=== PATIENT | male | born 1985 | race African-American/Black ===

== ENCOUNTER 2017-12-02 03:10 | Emergency (ER) | payer SELFPAY ==
[~2017-12-02] VITALS: Ht 167.6 cm; Wt 72.6 kg
[2017-12-02 03:18] VITALS: BP 130/104
[2017-12-02] MEDS ORDERED: Morphine Sulfate 4mg/ml Inj IVP ONE ×2 (03:30→04:45)
[2017-12-02] MEDS ORDERED: Ketorolac 30mg Inj IV ONE (03:30)
[2017-12-02 03:41] LABS: APPEARANCE,URINE CLEAR; BASOPHILS % (AUTO) 0.3 % (0.0-2.0); BILIRUBIN, URINE NEGATIVE (NEGATIVE); EOSINOPHILS % (AUTO) 0.1 % (0.0-3.0); GLUCOSE, URINE (UA) NEGATIVE (NEGATIVE); HEMATOCRIT 46.7 % (42.0-52.0); HEMOGLOBIN 15.1 G/DL (14.2-18.0); KETONES,URINE NEGATIVE (NEGATIVE); LEUKOCYTE ESTERASE ,URINE NEGATIVE (NEGATIVE); LYMPHOCYTES % (AUTO) 21.7 % (20.0-45.0); MEAN CORPUSCULAR VOLUME 81 FL (80-99); MONOCYTES % (AUTO) 8.5 % (1.0-10.0); NEUTROPHILS % (AUTO) 69.3 % (45.0-75.0); NITRITE,URINE NEGATIVE (NEGATIVE); PH,URINE 6 (4.5-8.0); PLATELET COUNT 252 K/UL (150-450); PROTEIN,URINE NEGATIVE (NEGATIVE); RED BLOOD COUNT 5.75 M/UL (4.70-6.10); RED CELL DISTRIBUTION WIDTH 12.3 % (11.6-14.8); UROBILINOGEN,URINE 1 MG/DL (0.0-1.0); WHITE BLOOD COUNT 8.8 K/UL (4.8-10.8)
[2017-12-02 03:43] LABS: COLOR,URINE YELLOW
[2017-12-02 03:51] LABS: ANION GAP 7 mmol/L (5-15); BLOOD UREA NITROGEN 15 mg/dL (7-18); CALCIUM 9.3 MG/DL (8.5-10.1); CARBON DIOXIDE 28 MMOL/L (21-32); CHLORIDE 102 MMOL/L (98-107); CREATININE 1.1 MG/DL (0.55-1.30); POTASSIUM 4.1 MMOL/L (3.5-5.1); SODIUM 137 MMOL/L (136-145)
[2017-12-02 04:04] LABS: ALANINE AMINOTRANSFERASE 29 U/L (12-78); ALBUMIN 4.1 G/DL (3.4-5.0); ALBUMIN/GLOBULIN RATIO 1.1 (1.0-2.7); ALKALINE PHOSPHATASE 48 U/L (46-116); ASPARTATE AMINO TRANSFERASE 27 U/L (15-37); BILIRUBIN,TOTAL 1.1 MG/DL (0.2-1.0)
[2017-12-02 04:11] LABS: BILIRUBIN,DIRECT 0.2 MG/DL (0.0-0.3)
[2017-12-02] MEDS ORDERED: Methocarbamol 750mg tab ORAL ONE (04:45)
--- NOTE | 2017-12-02 05:07 | Emergency Room Report ---
History of Present Illness General Chief Complaint: Back Pain-No Injury Source: Patient Present Illness HPI 32-year-old male presents ED complaining of back pain. Brought in by EMS from the street. States she's been having the pain for the last week but getting progressively worse. Pain is left-sided, radiating down the back. 8 out of 10 , throbbing. Notes history of kidney stones. Denies fevers or chills. Denies nausea or vomiting. Denies chest pain or shortness of breath. No other aggravating relieving factors. Denies any other associated symptoms Allergies: Coded Allergies: No Known Allergies (Unverified , 12/02/17) Patient History Past Medical History: other - kidney stones Past Surgical History: none Pertinent Family History: none Social History: Denies: smoking, alcohol use, drug use Immunizations: UTD Reviewed Nursing Documentation: PMH: Agreed; PSxH: Agreed Nursing Documentation-PMH Past Medical History: No History, Except For Hx Cancer: Yes - Pancreatic Review of Systems All Other Systems: negative except mentioned in HPI Physical Exam Vital Signs Date Time Temp Pulse Resp B/P (MAP) Pulse Ox O2 Delivery O2 Flow Rate FiO2 12/02/17 03:04 98.2 92 17 130/104 99 Room Air 98.2 Sp02 EP Interpretation: reviewed, normal General Appearance: alert, GCS 15, non-toxic, mild distress Head: normocephalic Eyes: bilateral eye normal inspection, bilateral eye PERRL ENT: normal ENT inspection Neck: normal inspection Respiratory: chest non-tender, lungs clear, normal breath sounds, speaking full sentences Cardiovascular #1: regular rate, rhythm, no edema Gastrointestinal: normal bowel sounds, non tender, soft, non-distended, no guarding, no rebound Rectal: deferred Genitourinary: no CVA tenderness Musculoskeletal: tender - paraspinal L sided tenderness Neurologic: alert, oriented x3, responsive, motor strength/tone normal, sensory intact, speech normal Psychiatric: normal inspection Skin: normal inspection Lymphatic: normal inspection Medical Decision Making Diagnostic Impression: Primary Impression: Back pain Qualified Codes: M54.9 - Dorsalgia, unspecified ER Course Hospital Course 32-year-old M presents to ED with back pain. History of kidney stones Differential diagnosis includes- kidney stones, pyelonephritis, muscle strain Clinical course Patient placed on stretcher. After initial history and physical I ordered labs , IV fluids, pain medications and CT scan Labs - no leukocytosis, electrolytes ok, LFTs normal, UA unremarkable CT scan shows no acute pathology. nonobstructign stones Upon reassessment, patient states pain has improved. I discussed findings with the patient. Pain is likely muscular. We will discharge I feel this is a highly complex case requiring extensive working including EKG/ Rhythm strip, Xray/CT/US, Blood/urine lab work, repeat exams while in ED, and administration of strong opiates/narcotics for pain control, admission to hospital or close patient follow up. Diagnosis - back pain Stable and discharged to home with Rx Motrin, Robaxin. Followup with PMD. Return to ED if symptoms recur or worsen Labs Test 12/02/17 03:30 White Blood Count 8.8 K/UL (4.8-10.8) Red Blood Count 5.75 M/UL (4.70-6.10) Hemoglobin 15.1 G/DL (14.2-18.0) Hematocrit 46.7 % (42.0-52.0) Mean Corpuscular Volume 81 FL (80-99) Mean Corpuscular Hemoglobin 26.2 PG (27.0-31.0) Mean Corpuscular Hemoglobin Concent 32.3 G/DL (32.0-36.0) Red Cell Distribution Width 12.3 % (11.6-14.8) Platelet Count 252 K/UL (150-450) Mean Platelet Volume 7.1 FL (6.5-10.1) Neutrophils (%) (Auto) 69.3 % (45.0-75.0) Lymphocytes (%) (Auto) 21.7 % (20.0-45.0) Monocytes (%) (Auto) 8.5 % (1.0-10.0) Eosinophils (%) (Auto) 0.1 % (0.0-3.0) Basophils (%) (Auto) 0.3 % (0.0-2.0) Urine Color Yellow Urine Appearance Clear Urine pH 6 (4.5-8.0) Urine Specific [place] 1.025 (1.005-1.035) Urine Protein Negative (NEGATIVE) Urine Glucose (UA) Negative (NEGATIVE) Urine Ketones Negative (NEGATIVE) Urine Occult Blood Negative (NEGATIVE) Urine Nitrite Negative (NEGATIVE) Urine Bilirubin Negative (NEGATIVE) Urine Urobilinogen 1 MG/DL (0.0-1.0) Urine Leukocyte Esterase Negative (NEGATIVE) Sodium Level 137 MMOL/L (136-145) Potassium Level 4.1 MMOL/L (3.5-5.1) Chloride Level 102 MMOL/L (98-107) Carbon Dioxide Level 28 MMOL/L (21-32) Anion Gap 7 mmol/L (5-15) Blood Urea Nitrogen 15 mg/dL (7-18) Creatinine 1.1 MG/DL (0.55-1.30) Estimat Glomerular Filtration Rate > 60 mL/min (>60) Glucose Level 90 MG/DL (74-106) Calcium Level 9.3 MG/DL (8.5-10.1) Total Bilirubin 1.1 MG/DL (0.2-1.0) Direct Bilirubin 0.2 MG/DL (0.0-0.3) Aspartate Amino Transf (AST/SGOT) 27 U/L (15-37) Alanine Aminotransferase (ALT/SGPT) 29 U/L (12-78) Alkaline Phosphatase 48 U/L (46-116) Total Protein 7.7 G/DL (6.4-8.2) Albumin 4.1 G/DL (3.4-5.0) Globulin 3.6 g/dL Albumin/Globulin Ratio 1.1 (1.0-2.7) Lipase 133 U/L (73-393) CT/MRI/US Diagnostic Results CT/MRI/US Diagnostic Results : Imaging Test Ordered: CT A/P Impression nonobstructing renal calculi. no obstruction. no hydroureter or hydronephrosis Last Vital Signs Date Time Temp Pulse Resp B/P (MAP) Pulse Ox O2 Delivery O2 Flow Rate FiO2 12/02/17 03:42 98.2 12/02/17 03:18 92 17 130/104 99 Room Air Status: improved Disposition: HOME, SELF-CARE Condition: Stable Scripts Methocarbamol* (ROBAXIN-750*) 750 Mg Tablet 750 MG PO TID, #21 TAB 0 Refills Prov: Jasvir Pond MD 12/02/17 Ibuprofen* (MOTRIN*) 600 Mg Tablet 600 MG ORAL Q8H PRN for For Pain, #30 TAB 0 Refills Prov: Jasvir Pond MD 6/18/18 Referrals: NOT CHOSEN IPA/,REFERRING (PCP) Jasvir Pond MD Dec 02, 2017 05:07
[2017-12-02] MEDS ORDERED: ROBAXIN-750750 MG PO (06:01)
[2017-12-02] MEDS ORDERED: IBUPROFEN600 MG ORAL (06:01)
[2017-12-02 06:15] VITALS: BP 125/84
[2017-12-02 06:16] VITALS: BP 125/84
--- NOTE | 2017-12-02 08:50 | Diagnostic Imaging Report ---
Indication: Flank pain Technique: Noncontrast CT of the abdomen and pelvis utilizing automated exposure control. Axial, sagittal and coronal reformats presented. CT dose: Total DLP 507.89 mGycm; CTDI vol 10.99 mGy Comparison: None Findings: Please note that evaluation of the abdominal and pelvic viscera and vascular structures is limited without the use of intravenous and oral contrast. Within these limitations the following observations are made: Imaged lung bases without focal consolidation, pleural effusion or pneumothorax. Heart size within normal limits. Noncontrast evaluation of the liver, gallbladder, spleen, adrenal glands and pancreas grossly unremarkable. Nonobstructing subcentimeter renal stones noted bilaterally. No evidence of hydronephrosis. No ureteral or bladder stones identified. There is no free intraperitoneal air. No evidence of bowel obstruction. Appendix is normal in caliber and the lumen is filled with air. No definite pathologically enlarged/conglomerate lymphadenopathy identified. Abdominal aorta appears normal in caliber. No acute osseous abnormality is seen. IMPRESSION: Limited exam without intravenous and oral contrast. Within these limitations: Bilateral nonobstructing subcentimeter renal calculi. No bladder calculi identified. No evidence of hydronephrosis bilaterally. The CT scanner at [facility] is accredited by the [employer] and the scans are performed using protocols designed to limit radiation exposure to as low as reasonably achievable to attain images of sufficient resolution adequate for diagnostic evaluation.
== END 2017-12-02 06:17 | disposition home or self-care (01) ==
LOC: EDBD 03:10 → EMR 04:44
DX: M54.9 Dorsalgia, unspecified (principal); Z85.07 Personal history of malignant neoplasm of pancreas
CPT/HCPCS: 36415; 74176; 80053; 81003; 82248; 83690; 85025; 96361; 96366; 96374; 99284; J1885; J2270; 96360